=== PATIENT | male | born 1975 | race African-American/Black ===

== ENCOUNTER 2016-10-11 12:39 | Emergency (ER) | payer OTHER ==
[~2016-10-11] VITALS: Ht 172.7 cm; Wt 118.2 kg
[2016-10-11] MEDS ORDERED: ARIP5TAB9 PO (12:58)
[2016-10-11] MEDS ORDERED: TRAZ-144 PO (12:58)
[2016-10-11] MEDS ORDERED: HYDR25TA PO (12:58)
[2016-10-11] MEDS ORDERED: LISI-661 PO (12:58)
[2016-10-11] MEDS ORDERED: FLUO-191 PO (12:58)
[2016-10-11] MEDS ORDERED: HYDR-3112 PO (12:58)
[2016-10-11] MEDS ORDERED: IBUPROFEN 600 MG TABLET PO ONE (13:30)
[2016-10-11 13:52] VITALS: BP 140/93
== END 2016-10-11 13:53 | disposition home or self-care (01) ==
LOC: EMS 12:42
DX: R07.89 Other chest pain (principal); J40 Bronchitis, not specified as acute or chronic; R10.9 Unspecified abdominal pain; I10 Essential (primary) hypertension; F17.210 Nicotine dependence, cigarettes, uncomplicated
CPT/HCPCS: 99283; 99406

== ENCOUNTER 2016-12-01 15:59 | Emergency (ER) | payer OTHER ==
[~2016-12-01] VITALS: Ht 175.3 cm; Wt 123.2 kg
[~2016-12-01 15:59] MED LIST: ARIP5TAB9 PO; FLUO-191 PO; HYDR-3112 PO; HYDR25TA PO; LISI-661 PO; TRAZ-144 PO
[2016-12-01] MEDS ORDERED: HYDROCODONE/ACETAMINOPHEN 5-325 MG TABLET PO ONE (18:45)
[2016-12-01] MEDS ORDERED: IBUPROFEN 800 MG TABLET PO ONE (19:15)
[2016-12-01 21:26] VITALS: BP 135/78
== END 2016-12-01 21:38 | disposition home or self-care (01) ==
LOC: EMS 16:01
DX: S93.402A Sprain of unspecified ligament of left ankle, initial encounter (principal); I10 Essential (primary) hypertension; F17.210 Nicotine dependence, cigarettes, uncomplicated; X50.9XXA Other and unspecified overexertion or strenuous movements or postures, initial encounter; Y93.89 Activity, other specified; Y92.89 Other specified places as the place of occurrence of the external cause; Y99.8 Other external cause status
CPT/HCPCS: 29515; 99284

== ENCOUNTER 2020-01-12 08:46 | Emergency (ER) | payer MEDICAID, OTHER ==
[~2020-01-12] VITALS: Ht 180.3 cm; Wt 125.0 kg
[~2020-01-12 08:46] MED LIST changes: +ARIP5TAB8 PO; -ARIP5TAB9 PO; +HYDR-1475 PO; -HYDR-3112 PO; -HYDR25TA PO; +HYDR25TA82 PO; -TRAZ-144 PO; +TRAZ-252 PO
[2020-01-12 08:50] VITALS: BP 153/64
[2020-01-12] MEDS ORDERED: ACETAMINOPHEN 325 MG TABLET PO ONE (11:15)
[2020-01-12] MEDS ORDERED: IBUPROFEN 600 MG TABLET PO ONE (11:15)
== END 2020-01-12 11:44 | disposition home or self-care (01) ==
LOC: EMS 08:54
DX: M79.671 Pain in right foot (principal); M79.672 Pain in left foot; I10 Essential (primary) hypertension; F41.9 Anxiety disorder, unspecified; F32.9 Major depressive disorder, single episode, unspecified; F17.210 Nicotine dependence, cigarettes, uncomplicated; Z79.899 Other long term (current) drug therapy